=== PATIENT | female | born 1975 | race Caucasian/White ===

== ENCOUNTER 2018-06-28 03:02 | Emergency (ER) | payer MEDICAID, OTHER ==
[~2018-06-28] VITALS: Ht 154.9 cm; Wt 61.2 kg
[2018-06-28] MEDS ORDERED: NORG1TAB14 (03:16)
[2018-06-28] MEDS ORDERED: CITA40TA11 (03:16)
[2018-06-28] MEDS ORDERED: KETOROLAC 30 MG/ML VIAL IM ONE (03:30)
--- NOTE | 2018-06-28 03:34 | ED Abdominal Pain ---
General Chief Complaint: Abdominal/GI Problems Stated Complaint: POSS APPY, RT SIDE PAIN,NAUSEA Nursing Triage Note: right sided abdominal pain, diarrhea Sepsis Screen: No Definite Risk Source of Information: Patient, Family, Old Records Exam Limitations: No Limitations History of Present Illness Date Seen by Provider: Jun 28, 2018 Time Seen by Provider: 03:22 Initial Comments The patient presents to the ER from [place] by private conveyance with her mother and chief complaint of right flank and abdominal pain. She thinks she might have appendicitis. She went to [place] ER sometime around 9:00 last night and was evaluated with urinalysis, blood work and a CT of her abdomen and pelvis and told that there was nothing we could find wrong. She did not bring a copy of any of her records. She does not have any significant abdominal medical history. She's never had a abdominal surgery. She is on oral control and her last menstrual period was 06/18/18. She's having no discharge, dysuria. She feels a little bit dry because of the nausea but she's had no vomiting. She has some Toradol as well as fentanyl at the ER which helped her pain significantly. She went home and then woke up about 1:30 with worsening sharp pain in her right lower quadrant. Called and spoke to [place] ER and they recommended a CT of the abdomen and pelvis with contrast was done and no mention of any free fluid or acute processes were noted. Appendix was noted normal there is no inflammation, bowel obstruction or other pathology seen. The did not have any ovarian cysts or other pathology seen. A CBC white count of 9000 and normal CMP and PT/INR as well as a urinalysis with no remarkable findings. There was some mention of vaginal discharge but no pelvic exam performed tonight. The plan from there was to leave go visit the OB doctor outpatient. They coded that they also gave the patient a dose of fentanyl and Toradol and she was feeling better. Allergies and Home Medications Allergies Coded Allergies: No Known Drug Allergies (Unverified , 06/28/18) Patient Home Medication List Home Medication List Reviewed: Yes Review of Systems Review of Systems Constitutional: No chills, No diaphoresis EENTM: No Blurred Vision, No Double Vision Respiratory: Denies Cough, Denies Orthopnea Cardiovascular: Denies Chest Pain, Denies Lightheadedness Gastrointestinal: Denies Abdomen Distended; Abdominal Pain; Denies Constipated , Denies Diarrhea, Denies Difficulty Swallowing; Nausea; Denies Poor Fluid Intake, Denies Rectal Bleeding, Denies Vomiting Genitourinary: Denies Burning, Denies Discharge Musculoskeletal: No back pain, No joint pain Past Drcbbtk-Etlupb-Zzkkwv Hx Patient Social History Alcohol Use: Denies Use Recreational Drug Use: No Smoking Status: Never a Smoker 2nd Hand Smoke Exposure: No Recent Foreign Travel: No Contact w/Someone Who Travel: No Recent Infectious Disease Expo: No Recent Hopitalizations: No Immunizations Up To Date Tetanus Booster (TDap): Unknown Seasonal Allergies Seasonal Allergies: No Past Medical History Surgeries: Yes (cerclage) Respiratory: No Cardiac: No Neurological: No : No Last Menstrual Period: Jun 23, 2018 Female Reproductive Disorders: Endometriosis Genitourinary: No Gastrointestinal: No Musculoskeletal: No Endocrine: No HEENT: No Cancer: No Psychosocial: Yes Depression Integumentary: No Blood Disorders: No Physical Exam Vital Signs Vital Signs - First Documented 06/28/18 03:05 Temp 96.8 Pulse 85 Resp 18 B/P (MAP) 167/87 (113) Pulse Ox 96 O2 Delivery Room Air Capillary Refill : Less Than 3 Seconds Height/Weight/BMI Height: 5'1.00" Weight: 135lbs. oz. 61.609707at; BMI Method:Stated General Appearance: WD/WN, no apparent distress HEENT: PERRL/EOMI, normal ENT inspection, TMs normal, pharynx normal Respiratory: chest non-tender, lungs clear, normal breath sounds, no respiratory distress, no accessory muscle use Cardiovascular: normal peripheral pulses, regular rate, rhythm, no edema Peripheral Pulses: 2+ Radial Pulses (R), 2+ Radial Pulses (L) Gastrointestinal: normal bowel sounds, soft; No rebound; tenderness ( midepigastric and right lower quadrant moderate without any mesenteric signs or Rovsing sign) Extremities: normal range of motion, non-tender, normal inspection, normal capillary refill Neurologic/Psychiatric: alert, normal mood/affect, oriented x 3 Skin: normal color, warm/dry Progress/Results/Core Measures Results/Orders Lab Results Laboratory Tests Test 06/28/18 03:35 06/28/18 04:05 Range/Units Urine Color YELLOW Urine Clarity CLEAR Urine pH 6.5 5-9 Urine Specific [place] 1.015 L 1.016-1.022 Urine Protein 1+ H NEGATIVE Urine Glucose (UA) NEGATIVE NEGATIVE Urine Ketones NEGATIVE NEGATIVE Urine Nitrite NEGATIVE NEGATIVE Urine Bilirubin NEGATIVE NEGATIVE Urine Urobilinogen NORMAL NORMAL MG/DL Urine Leukocyte Esterase 2+ H NEGATIVE Urine RBC (Auto) 1+ H NEGATIVE Urine RBC 2-5 H /HPF Urine WBC 5-10 H /HPF Urine Squamous Epithelial Cells 5-10 /HPF Urine Crystals NONE /LPF Urine Bacteria FEW H /HPF Urine Casts NONE /LPF Urine Mucus NEGATIVE /LPF Urine Culture Indicated YES Lipase 62 8-78 U/L My Orders Orders - GUALBERTO CASILLAS Ketorolac Injection (Toradol Injection) (06/28/18 03:30) Ua Culture If Indicated (06/28/18 03:26) Ct Abd/Pelvis Wo(Kidney Stone) (06/28/18 03:46) Saline Lock/Iv-Start (06/28/18 03:46) Saline Lock/Iv-Start (06/28/18 03:46) Ns Iv 1000 Ml (Sodium Chloride 0.9%) (06/28/18 03:46) Ondansetron Injection (Zofran Injectio (06/28/18 04:00) Lipase (06/28/18 03:46) Urine Culture (06/28/18 03:35) Medications Given in ED Current Medications Medications Dose Ordered Sig/Jacquelin Route Start Time Stop Time Status Last Admin Dose Admin Ketorolac Tromethamine 30 mg ONCE ONCE IM 06/28/18 03:30 06/28/18 03:31 DC 06/28/18 03:33 30 MG Ondansetron HCl 4 mg ONCE ONCE IVP 06/28/18 04:00 06/28/18 04:01 DC 06/28/18 04:04 4 MG Vital Signs/I&O 06/28/18 06/28/18 03:05 03:33 Temp 96.8 96.8 Pulse 85 Resp 18 B/P (MAP) 167/87 (113) Pulse Ox 96 O2 Delivery Room Air Blood Pressure Mean: 113 Progress Progress Note : Time: 04:06 Progress Note Patient signed a release and we did get a copy of her records. Her white blood cell count is 9.1 thousand with a hemoglobin of 12.6 and a platelet of 295,000. Pro time is 9.8 seconds with an INR of 1.0. PTT of 25.8 seconds and the sodium demonstrated has 141 potassium 4.4 chloride 103 CO2 of 19 calcium 9.2B within 9 creatinine 0.77 glucose 98 alkaline phosphatase 79 AST 15 ALT 10 and the impression from the CT abdomen pelvis with contrast was read out as: #1 no evidence of acute intra-abdominal pathology. Specifically no evidence of appendicitis diverticulitis bowel obstruction or perforation. #2 Cholelithiasis. While patient has some midepigastric tenderness this does not appear to be consistent with a positive Hendrix signs or any CT evidence of cholecystitis. She has no elevated white count and her vitals at this time are normal. I discussed with her that further labs are probably not very useful but we will check a lipase, repeat a urinalysis and hCG and I have offered to do a CT without contrast since she is having some right costovertebral angle tenderness to percussion to rule out a kidney stone. We will offer her a bag of fluids first help flush the IV contrast out of the ureters and bladder. Thus far she's not been able to produce a urine specimen. Since she's having pain were to start with 30 mg of Toradol. If we can't find any acute pathology we will send her back to her [facility] outpatient with some pain and nausea control medicines. Diagnostic Imaging Diagonstic Imaging: CT (without contrast) Plain Films/CT/US/NM/MRI: abdomen, pelvis Comments No hydroureter nephrosis or clear evidence for radiopaque obstructing ureteral calculus allowing for the presence of expiratory contrast and the renal collecting systems and urinary bladder. Cholelithiasis without biliary ductal dilatation or CT evidence of a pericholecystic inflammation. Small sliding hiatal hernia. Trace pelvic fluid. No free air or small bowel obstruction colonic wall thickening or acute appendicitis. Reviewed: Reviewed [place] Study, Reviewed by Me Departure Impression Primary Impression: Acute abdominal pain Disposition: 01 HOME, SELF-CARE Condition: Improved Departure-Patient Inst. Decision time for Depature: 05:08 Referrals: POOL PALACIOS MD (PCP/Family) Primary Care Physician Patient Instructions: Acute Abdomen (Belly Pain), Adult (DC) Add. Discharge Instructions: Please follow-up with your primary care provider or [employer] to consider ultrasound of the pelvis. If you have pain you can take ibuprofen 800 mg every 8 hours in addition to one tablet of tramadol every 6 hours as needed. If you have nausea you can take one tablet of Zofran every [address] it under the tongue and allow it to absorb through the mouth. shift supervisor the antibiotics and start taking 1 tablet twice a day to completion for the next week. If you' re having intractable pain, nausea, fever above 102.5 or other worrisome symptoms you should return to the nearest ER for further evaluation. All discharge instructions reviewed with patient and/or family. Voiced understanding. Scripts Nitrofurantoin Macrocrystal (Nitrofurantoin) 100 Mg Capsule 100 MG PO BID for 7 Days, #14 CAP 0 Refills Prov: GUALBERTO CASILLAS 06/28/18 Ondansetron (Ondansetron Odt) 4 Mg Tab.rapdis 4 MG PO Q6H PRN for NAUSEA/VOMITING, #8 TAB 0 Refills Prov: GUALBERTO CASILLAS 06/28/18 Tramadol HCl (Tramadol HCl) 50 Mg Tablet 50 MG PO Q6H PRN for PAIN for 7 Days, #20 TAB 0 Refills Prov: GUALBERTO CASILLAS 06/28/18 Copy Copies To 1: POOL PALACIOS MD, TITUS J Jun 28, 2018 03:34
[2018-06-28] MEDS ORDERED: NS IV 1000 ML 1,000 ML IV SCH (03:46)
[2018-06-28] MEDS ORDERED: ONDANSETRON 4 MG/2 ML (SDV) Z0FRAN IVP ONE (04:00)
[2018-06-28 04:42] LABS: BILIRUBIN,URINE NEGATIVE (NEGATIVE); CLARITY,URINE CLEAR; COLOR,URINE YELLOW; GLUCOSE, URINE (UA) NEGATIVE (NEGATIVE); KETONES,URINE NEGATIVE (NEGATIVE); LEUKOCYTE ESTERASE ,URINE 2+ (NEGATIVE); NITRITE,URINE NEGATIVE (NEGATIVE); PH,URINE 6.5 (5-9); PROTEIN,URINE 1+ (NEGATIVE); UROBILINOGEN,URINE NORMAL (NORMAL)
[2018-06-28 04:51] LABS: BACTERIA,URINE FEW /HPF
[2018-06-28] MEDS ORDERED: ONDA4TAB11 PO (05:15)
[2018-06-28] MEDS ORDERED: NITR100C PO (05:15)
[2018-06-28] MEDS ORDERED: TRAM50TA2 PO (05:15)
[2018-06-28 05:26] VITALS: BP 124/83
[2018-06-28] MEDS ORDERED: HYDROcodone/APAP 5 MG/325 MG (LORTAB) TAB PO ONE (05:30)
--- NOTE | 2018-06-28 07:22 | Diagnostic Imaging Report ---
PROCEDURE: CT urinary tract, rule out kidney stone. TECHNIQUE: Multiple contiguous axial images were obtained through the abdomen and pelvis without the use of intravenous contrast. INDICATION: Right abdominal pain Unenhanced images of the liver and spleen reveal no focal abnormality. There is an approximately 0.4 cm calculus in the dependent gallbladder. No adrenal gland or renal lesion is identified. There is no free fluid seen within the abdomen or pelvis. There is minimal aortoiliac atherosclerotic calcification. The urinary bladder is opacified with contrast. There is no evidence of appendiceal inflammation. IMPRESSION: No definite acute abnormality is identified although note is made of small gallstone without associated inflammation or biliary tract dilatation. There is no evidence of urinary tract calculus or obstruction although the bladder is opacified with contrast. The appendix has a normal appearance. Dictated by: Dictated on workstation # [id number]
== END 2018-06-28 05:26 | disposition home or self-care (01) ==
LOC: ER 03:06
DX: R10.13 Epigastric pain (principal); R10.31 Right lower quadrant pain; F32.9 Major depressive disorder, single episode, unspecified; Z87.448 Personal history of other diseases of urinary system
CPT/HCPCS: 36415; 74176; 81000; 83690; 87088

== ENCOUNTER → 2021-02-01 | Outpatient (CLI) | payer SELFPAY ==
[~2021-02-01] MED LIST: CITA40TA11; NITR100C PO; NORG1TAB14; ONDA4TAB11 PO; TRM50T PO
--- NOTE | 2021-02-01 15:23 | Diagnostic Imaging Report ---
PROCEDURE: Pelvic comp/transvaginal sonogram. TECHNIQUE: Complete transabdominal and transvaginal pelvic ultrasound was performed. In addition, limited pelvic Doppler was performed. INDICATION: Menorrhagia. FINDINGS: Uterus measures 6.7 x 5.3 x 3.9 cm. Endometrium is 8 mm in thickness. No myometrial mass is detected. Right ovary measures 1.9 x 0.7 x 0.9 cm and left ovary measures 3.1 x 2.5 x 2.2 cm. The left ovary does contain a 2.5 cm cyst. There is blood flow to both ovaries. Cervical nabothian cysts are noted. There is no free fluid. IMPRESSION: 2.5 cm left ovarian cyst. Study is otherwise unremarkable. Dictated by: Dictated on workstation # [id number]
== END ==
LOC: RAD FS 13:50
PROVIDERS: ATTEND Family Medicine
DX: N92.0 Excessive and frequent menstruation with regular cycle (principal); N83.202 Unspecified ovarian cyst, left side
CPT/HCPCS: 76830; 76856

== ENCOUNTER → 2021-04-07 | Outpatient (CLI) | payer SELFPAY | LOC: LABNPT 14:00 | PROVIDERS: ATTEND Family Medicine | DX: N94.89 Other specified conditions associated with female genital organs and menstrual cycle (principal) | CPT/HCPCS: 87529 ==

== ENCOUNTER 2021-05-31 05:35 | Outpatient (CLI) | payer OTHER ==
[~2021-05-31] VITALS: Ht 154.9 cm; Wt 64.5 kg
[~2021-05-31 05:35] MED LIST changes: -NORG1TAB14; +NORG1TAB14 PO
[2021-05-31] MEDS ORDERED: SERT-414 PO (11:27)
[2021-05-31] MEDS ORDERED: BUSP5TAB59 PO (11:27)
[2021-05-31] MEDS ORDERED: PANT40TA52 PO (11:27)
[2021-05-31] MEDS ORDERED: ATOR20TA66 PO (11:27)
== END 2021-05-31 11:34 | disposition home or self-care (01) ==
LOC: PREOP 05:35
PROVIDERS: ATTEND Obstetrics & Gynecology
DX: Z01.818 Encounter for other preprocedural examination (principal)

== ENCOUNTER 2021-07-08 05:37 | Outpatient (CLI) | payer OTHER ==
[~2021-07-08] VITALS: Ht 154.9 cm; Wt 64.5 kg
[~2021-07-08 05:37] MED LIST changes: +ATOR20TA66 PO; +BUSP5TAB59 PO; +PANT40TA52 PO; +SERT-414 PO
== END 2021-07-08 15:23 | disposition home or self-care (01) ==
LOC: PREOP 05:37
PROVIDERS: ATTEND Obstetrics & Gynecology
DX: Z01.818 Encounter for other preprocedural examination (principal)

== ENCOUNTER 2021-07-12 06:10 | Day surgery (SDC) | payer OTHER ==
[~2021-07-12] VITALS: Ht 154 cm; Wt 64.5 kg
[2021-07-12] VITALS (12 sets, daily range): BP systolic 111–134; BP diastolic 58–89
--- OUTSIDE RECORDS SUMMARY | 2021-07-12 06:13 | XMS REPORT | Clinical Summary ---
Author Author [facility] Organization [facility] Address Unknown Phone Unavailable Care Team Providers Care Managed Services Sales Consultant Name Role Phone PCP Unavailable Allergies Not on File Medications Not on file Active Problems Not on file Social History Date Tobacco Use Types Packs/Day Years Used Never Assessed Sex Assigned at Date Recorded Not on file Last Filed Vital Signs Not on file Plan of Treatment Not on file Results Not on filefrom Last 3 Months
[2021-07-12] MEDS ORDERED: metroNIDAZOLE 500MG/100ML IVPB 100 ML IV ONE (06:15)
[2021-07-12] MEDS ORDERED: LACTATED RINGERS 1,000 ML IV ONE (06:15)
[2021-07-12] MEDS ORDERED: ceFAZolin 2 GM IV Premixed 50 ML IV ONE (06:15)
[2021-07-12] MEDS ORDERED: LACTATED RINGERS 1,000 ML IV PRN (06:45)
[2021-07-12 06:48] LABS: BASOPHILS # (AUTO) 0.1 10^3/uL (0.0-0.1); BASOPHILS % (AUTO) 1 % (0-10); EOSINOPHILS # (AUTO) 0.2 10^3/uL (0.0-0.3); EOSINOPHILS % (AUTO) 2 % (0-10); HEMATOCRIT 38 % (35-52); HEMOGLOBIN 13.1 g/dL (11.5-16.0); LYMPHOCYTES # (AUTO) 2.3 10^3/uL (1.0-4.0); LYMPHOCYTES % (AUTO) 23 % (12-44); MEAN CORPUSCULAR HEMOGLOBIN 29 pg (25-34); MEAN CORPUSCULAR HGB CONC 35 g/dL (32-36); MEAN CORPUSCULAR VOLUME 85 fL (80-99); MEAN PLATELET VOLUME 9.8 fL (9.0-12.2); MONOCYTES # (AUTO) 0.7 10^3/uL (0.0-1.0); MONOCYTES % (AUTO) 7 % (0-12); NEUTROPHILS # (AUTO) 6.5 10^3/uL (1.8-7.8); NEUTROPHILS % (AUTO) 67 % (42-75); PLATELET COUNT 337 10^3/uL (130-400); WHITE BLOOD COUNT 9.8 10^3/uL (4.3-11.0)
[2021-07-12] MEDS ORDERED: FAMOTIDINE 20MG/2ML IV (PEPCID) ONE (06:54)
[2021-07-12] MEDS ORDERED: ONDANSETRON 4 MG/2 ML (SDV) Z0FRAN ONE (06:55)
[2021-07-12] MEDS ORDERED: fentaNYL INJ 100 MCG/2 ML AMP ONE (06:55)
[2021-07-12] MEDS ORDERED: proPOfol 200 MG/20 ML (DIPRIVAN) VIAL IV ONE (06:55)
[2021-07-12] MEDS ORDERED: ROCURONIUM 10 MG/ML 5 ML SYRINGE IV ONE (06:55)
[2021-07-12] MEDS ORDERED: GLYCOPYRROLATE 0.2 MG/ML (ROBINUL) 2 ML VIAL ONE (06:55)
[2021-07-12] MEDS ORDERED: MIDAZOLAM 2 MG/2 ML (VERSED) VIAL ONE (06:55)
[2021-07-12] MEDS ORDERED: LIDOCAINE PF 2% 5 ML (XYLOCAINE) VIAL ONE (06:55)
[2021-07-12] MEDS ORDERED: NEOSTIGMINE 3 MG/3 ML VIAL ONE (06:55)
[2021-07-12] MEDS ORDERED: BUPIVACAINE 0.25% 30 ML (SENSORCAINE) VIAL ONE (07:03)
[2021-07-12] MEDS: LACTATED RINGERS 1,000 ML IV PRN ×2 (07:12→08:35)
--- NOTE | 2021-07-12 07:17 | History & Physical-Surgical ---
HPO-Surgical History of Present Illness Chief Complaint: CPP, Dysmenorrhea Diagnosis/Surgical Indication: CPP, dyspareunia, dysmenorrhea Procedure: RATLH with BSO Date of Surgery: Jul 12, 2021 Weight (Pounds): 135 Height (Feet): 5 Height (Inches): 1.00 Allergies and Home Medications Allergies Coded Allergies: tramadol (Verified Allergy, Unknown, Itching, 05/31/21) Patient Home Medication List Home Medication List Reviewed: Yes Atorvastatin Calcium (Atorvastatin Calcium) 20 Mg Tablet, 20 MG PO HS, (Reported) Entered as Reported by: JEANA WOODALL on 05/31/21 1127 Buspirone HCl (Buspirone HCl) 5 Mg Tablet, 5 MG PO HS, (Reported) Entered as Reported by: JEANA WOODALL on 05/31/21 112 Norgestimate-Ethinyl Estradiol (Sprintec 28 Day Tablet) 1 Each Tablet, 1 TAB PO DAILY, (Reported) Entered as Reported by: RLAPH BLANTON on 06/28/18 0316 Pantoprazole Sodium (Pantoprazole Sodium) 40 Mg Tablet.dr, 40 MG PO HS, (Reported) Entered as Reported by: JEANA WOODALL on 05/31/21 1127 Sertraline HCl (Sertraline HCl) 100 Mg Tablet, 100 MG PO HS, (Reported) Entered as Reported by: JEANA WOODALL on 05/31/21 1127 Past Khaviql-Cntxxg-Uccwzx Hx Patient Social History Smoking Status: Never a Smoker 2nd Hand Smoke Exposure: No Recent Hopitalizations: No Immunizations Up To Date Tetanus Booster (TDap): Unknown Seasonal Allergies Seasonal Allergies: No Surgeries Yes (cerclage, cervix cut open?, ) Gallbladder Respiratory No Cardiovascular Yes High Cholesterol Neurological No Reproductive System Female Reproductive Disorders: Endometriosis Genitourinary No Gastrointestinal Yes Gastroesophageal Reflux Musculoskeletal No Endocrine History of Endocrine Disorders: No HEENT History of HEENT Disorders: No Cancer No Psychosocial History of Psychiatric Problem: Yes Behavioral Health Disorders: Depression Integumentary History of Skin or Integumenta: No Blood Transfusions History of Blood Disorders: No Exam Vital Signs Vital Signs 07/12/21 06:30 Temp 36.3 Pulse 91 Resp 18 B/P (MAP) 133/87 (102) Pulse Ox 98 O2 Delivery Room Air Capillary Refill : Labs Laboratory Tests Test 07/12/21 06:30 Range/Units White Blood Count 9.8 4.3-11.0 10^3/uL Red Blood Count 4.45 3.80-5.11 10^6/uL Hemoglobin 13.1 11.5-16.0 g/dL Hematocrit 38 35-52 % Mean Corpuscular Volume 85 80-99 fL Mean Corpuscular Hemoglobin 29 25-34 pg Mean Corpuscular Hemoglobin Concent 35 32-36 g/dL Red Cell Distribution Width 15.1 H 10.0-14.5 % Platelet Count 337 130-400 10^3/uL Mean Platelet Volume 9.8 9.0-12.2 fL Immature Granulocyte % (Auto) 0 % Neutrophils (%) (Auto) 67 42-75 % Lymphocytes (%) (Auto) 23 12-44 % Monocytes (%) (Auto) 7 0-12 % Eosinophils (%) (Auto) 2 0-10 % Basophils (%) (Auto) 1 0-10 % Neutrophils # (Auto) 6.5 1.8-7.8 10^3/uL Lymphocytes # (Auto) 2.3 1.0-4.0 10^3/uL Monocytes # (Auto) 0.7 0.0-1.0 10^3/uL Eosinophils # (Auto) 0.2 0.0-0.3 10^3/uL Basophils # (Auto) 0.1 0.0-0.1 10^3/uL Immature Granulocyte # (Auto) 0.0 0.0-0.1 10^3/uL General Appearance: Alert, Oriented X3 HEENT: Atraumatic, PERRLA Respiratory: Clear to Auscultation Cardiovascular: Regular Rate Abdominal: Normal Bowel Sounds Extremities: No Clubbing, No Cyanosis Neuro: Normal Speech Psych/Mental Status: Mental Status NL Assessment/Plan Assessment and Plan Diagnosis: Dysmenorrhea, Dyspareunia, CPP P: RAMONA w/ poss BSO Admission Diagnosis Dysmenorrhea, Dyspareunia, CPP Admission Status: Observation Reason for Inpatient Admission: RATLH w/ poss bso NARA RIVAS DO Jul 12, 2021 07:17
[2021-07-12] MEDS ORDERED: HYDROmorphone 2 MG/ML VIAL (DILAUDID) IV ONE (07:30)
[2021-07-12] MEDS ORDERED: morphine INJ 10 MG/ML 1ML (SYR OR VIAL) IVP ONE (07:30)
[2021-07-12] MEDS ORDERED: ONDANSETRON 4 MG/2 ML (SDV) Z0FRAN IVP PRN (07:30)
--- NOTE | 2021-07-12 07:39 | Discharge Inst-Women's Service ---
Discharge Inst-Women's Serv Depart Medication/Instructions New, Converted or Re-Newed RX: RX on Chart Problems Reviewed?: Yes Consults/Follow Up Additional Follow Up: Yes Orders/Referrals Dr. Jacob in 7-10 days and in 8 weeks Activity Activity: Activity as Tolerated Driving Instructions: No Driving for 1 Week NO SMOKING: NO SMOKING Nothing Inside Vagina: No Douching, No [place], No Tampons Diet Discharge Diet: No Restrictions Symptoms to Report to : Bleeding Excessive, Pain Increased, Fever Over 101 Degrees F, Vaginal Bleeding Increase, Questions/Concerns For Any Problems or Questions: Contact Your Physician Skin/Wound Care Infection Signs and Symptoms: Increased Redness, Foul Odor of Wound, Increased Drainage, Skin Itchy or Has a Rash, Increased Swelling, Temperature Above 101 F Operative Area Clean and Dry: Keep Incision Clean/Dry Stitches/Cynthia/Dermabond: Dermabond, Care of Stitches Bathing Instructions: NARA Capone DO Jul 12, 2021 07:39
[2021-07-12] MEDS ORDERED: SMT80CT PO (07:42)
[2021-07-12] MEDS ORDERED: IBUP-1773 PO (07:42)
[2021-07-12] MEDS ORDERED: HYDR-34 PO (07:42)
[2021-07-12] MEDS ORDERED: DOCU100C37 PO (07:42)
[2021-07-12] MEDS ORDERED: DOCUSATE SODIUM 100 MG (COLACE) CAP PO PRN (07:45)
[2021-07-12] MEDS ORDERED: CHLORASEPTIC LOZENGE MM PRN (07:45)
[2021-07-12] MEDS ORDERED: ZOLPIDEM 5 MG (AMBIEN) TAB PO PRN (07:45)
[2021-07-12] MEDS ORDERED: NALOXONE 0.4 MG/ML 1 ML (NARCAN) VIAL IV PRN (07:45)
[2021-07-12] MEDS ORDERED: SIMETHICONE 80 MG (MYLICON) CHEW PO PRN (07:45)
[2021-07-12] MEDS ORDERED: HYDROcodone/APAP 7.5 MG/325 MG (LORTAB, LORCET PLUS) TABLET PO PRN (07:45)
[2021-07-12] MEDS ORDERED: ANTACID SUSP 30 ML UDC (MYLANTA) PO PRN (07:45)
[2021-07-12] MEDS ORDERED: ONDANSETRON 4 MG/2 ML (SDV) Z0FRAN IV PRN (07:45)
[2021-07-12] MEDS ORDERED: HYDROmorphone 2 MG/ML VIAL (DILAUDID) ONE (08:46)
[2021-07-12] MEDS: KETOROLAC 30 MG/ML VIAL IVP PRN ×3 (09:29→20:17)
[2021-07-12] MEDS ORDERED: SEVOFLURANE (ULTANE) 15 ML INHAL SOLN ONE (10:33)
--- NOTE | 2021-07-12 13:12 | Anesthesia-General Post-Op ---
General Patient Condition Mental Status/LOC: Same as Preop Cardiovascular: Satisfactory Nausea/Vomiting: Absent Respiratory: Satisfactory Pain: Controlled Complications: Absent Post Op Complications Complications None Follow Up Care/Instructions Patient Instructions None needed. Anesthesia/Patient Condition Patient Condition Patient was seen in PACU after the procedure and she was doing well, no complaints, stable vital signs, no apparent adverse anesthesia problems. MIRIAN TRUONG DO Jul 12, 2021 13:12
--- NOTE | 2021-07-12 13:40 | OPERATIVE REPORT ---
DATE OF SERVICE: 07/12/2021 PREOPERATIVE DIAGNOSES: 1. A 46-year-old female with chronic pelvic pain. 2. Dysmenorrhea. 3. Dyspareunia. 4. Abnormal uterine bleeding. POSTOPERATIVE DIAGNOSES: 1. A 46-year-old female with chronic pelvic pain. 2. Dysmenorrhea. 3. Dyspareunia. 4. Abnormal uterine bleeding. PROCEDURES PERFORMED: Robotic-assisted total laparoscopic hysterectomy with bilateral salpingectomy. SURGEON: Joshua Jacob DO. EDUCATIONAL DIRECTOR: Sharda Tellez DNP, was necessary for manipulation and retraction throughout the procedure. ANESTHESIA: General endotracheal. ESTIMATED BLOOD LOSS: Minimal. URINE OUTPUT: 100 mL clear at the end of the procedure. FLUIDS: 1300 mL lactated Ringer's solution. FINDINGS: A slightly hyperemic appearing uterus, grossly normal appearing bilateral ovaries and fallopian tubes. SPECIMEN SENT: Uterus and bilateral fallopian tubes. INDICATIONS FOR PROCEDURE: This 46-year-old female is a patient, who is consulted to my office from Dr. Patterson in [place] for long-term heavy painful periods despite conservative management options and therapies in the past. I discussed with the patient in detail the other conservative options that could take place including D and C with endometrial ablation; however, she had not had a tubal sterilization in the past and she did not want to do this, so she would prefer to proceed with more definitive measures in the form of hysterectomy. Risks of the procedure were discussed with the patient in detail including the risk of bleeding, infection, damage to surrounding structures including, but not limited to bowel, bladder, ureter, kidneys, possible need for operation, postoperative complications that may occur, risk from anesthesia and even . After everything was discussed with the patient in detail, consent was obtained in the preoperative area and the patient was taken to the operating room. OPERATIVE REPORT IN DETAIL: Once in the operating room, general anesthesia was found to be adequate. She was placed in a dorsal lithotomy position, prepped and draped in a normal sterile fashion. A timeout was performed. A Almeida catheter was placed using a sterile technique. A weighted speculum was inserted to the patient's vagina. Right angle retractor was used to visualize the cervix, which was grasped at 12 o'clock position using a long Allis clamp and 0 Vicryl suture was then placed at the anterior lip of the cervix and the suture was then used as my retraction point. I then gently sounded the uterine cavity, depth was found to be 8 cm. I placed a Mariah uterine manipulator to a depth of 8 cm with an 8 cm manipulator tip and a 3.5 cm colpotomy ring. The manipulator tip was advanced into the uterus, where the balloon was deployed. The colpotomy ring was advanced around the vaginal fornix after which all other instruments were removed from the patient's vagina. I performed a change of gloves, obtained my attention to the abdomen, where subcostally at the midclavicular line, I placed a Veress needle through the skin into the peritoneum until intraperitoneal placement was confirmed using a saline drop test. An opening pressure of 5 mmHg was noted. I proceeded to maximum pressure of 15 mmHg, at which point, I made an 8 mm infraumbilical incision with a knife and directed [place] camera trocar through this incision until intraperitoneal placement was confirmed using the [place] laparoscope. A brief scan of the lower abdominal and upper abdominal anatomy appears to have no damage upon my entry site and the Veress needle was visualized and removed at that point. I then had the patient placed in steep Trendelenburg. I was able to visualize all my pelvic anatomy as defined in my findings above. I placed two lateral trocars using both 8 mm trocars approximately 8 cm lateral to my infraumbilical trocar. They were placed under direct visualization of the laparoscope in a similar fashion to my infraumbilical trocar site. Once both of these were in place, I brought in the [place] robot and docked in appropriate fashion placing the synchronous device in the left hand and monopolar jordin in the right hand and performed the following dissection bilaterally. I started the uteroovarian ligament, which I sealed and transected using the SynchroSeal. I then created a window in the mesosalpinx and took this laterally down to the distal ampullary connection point using the SynchroSeal device. I then grasped the round ligament, which I sealed and transected using the SynchroSeal. I then grasped the entire broad ligament, which I sealed and transected using the SynchroSeal device at which point I the anterior and posterior leaflets of the broad ligament, anterior leaflet dissection was taken around the anterior vaginal fornix and posterior leaflets was taken around the posterior vaginal fornix. This allowed me to skeletonize the uterine vessels laterally, which I sealed and transected using the SynchroSeal device. I then created a colpotomy at 12 o'clock position using monopolar jordin and took this circumferentially around the vaginal fornix amputating the cervix away from the vagina. The entire specimen was then removed through the vagina. I then closed the lateral vaginal apices of the vaginal cuff using 2-0 Vicryl suture in a [id number] fashion colposuspending them to the uterosacral ligaments. I then closed the remainder of the vaginal cuff using 2-0 V-Loc in a running fashion, after which, there was no active bleeding noted from any of my dissection planes. I then undocked the [place] robot and proceeded with the remainder of the case laparoscopically. I copiously irrigated the pelvis using normal saline. Once again, there was no active bleeding noted from any of my dissection planes. I placed Surgiflo hemostatic anterior over all my planes of dissection to ensure excellent postoperative hemostasis. I then had the patient taken out of steep Trendelenburg, where I removed the lateral trocars under direct visualization of the laparoscope and the infraumbilical trocar was left in place to release insufflation and to introduce 10 mL of 0.25% Marcaine into peritoneal cavity for postoperative pain management. I then removed this trocar as well. The skin was reapproximated using 4-0 Monocryl interrupted subcuticular stitches. Dermabond was applied to incision and Band-Aids were placed over the incisions as well. Almeida catheter was left in place. The patient tolerated the procedure well and sent to recovery area in a stable condition. Lap and sponge counts were correct at the end of the procedure. Instrument counts were correct as well. Two grams of Ancef and 500 mg of Flagyl were given preoperatively for infection prophylaxis. Job ID: [id number] DocumentID: [id number] Dictated Date: 07/12/2021 09:08:44 Plant Associate Date: 07/12/2021 13:39:36 Dictated By: JOSHUA JACOB DO
[2021-07-12] MEDS: LACTATED RINGERS 1,000 ML IV SCH ×3 (14:30→23:55)
[2021-07-13 02:27] VITALS: BP 132/60
[2021-07-13 06:00] VITALS: BP 126/70
[2021-07-13 09:15] VITALS: BP 149/86
[2021-07-13 13:05] VITALS: BP 126/70
== END 2021-07-13 13:05 | disposition home or self-care (01) ==
LOC: SDC 06:10 → WS 10:00 → SDC 07-13 13:05
PROVIDERS: ATTEND Obstetrics & Gynecology
DX: N72 Inflammatory disease of cervix uteri (principal); N87.9 Dysplasia of cervix uteri, unspecified; N80.0 Endometriosis of uterus; N83.8 Other noninflammatory disorders of ovary, fallopian tube and broad ligament; E78.00 Pure hypercholesterolemia, unspecified; K21.9 Gastro-esophageal reflux disease without esophagitis; F32.A Depression, unspecified; Z79.899 Other long term (current) drug therapy
CPT/HCPCS: 36415; 84703; 85025; 86850; 86900; 86901; 87081; 94664